=== PATIENT | male | born 1980 | race Caucasian/White ===

== ENCOUNTER 2020-05-04 11:02 | Outpatient (CLI) | payer OTHER, MEDICAID, SELFPAY ==
[2020-05-04 12:31] LABS: SARS-CoV-2 Ag Negative (Negative)
== END 2020-05-04 11:03 | disposition home or self-care (01) ==
PROVIDERS: PCP Family Medicine; Visit Provider Family Medicine
DX: Z20.828 Contact with and (suspected) exposure to other viral communicable diseases (principal)
CPT/HCPCS: 87426

== ENCOUNTER 2020-07-27 09:50 | Outpatient (CLI) | payer MEDICAID, SELFPAY ==
--- NOTE | ~2020-07-27 | XR_ITS ---
EXAMINATION: XR ribs LT 2V w CXR 2V, XR thoracic spine 3V DATE: 07/27/2020 10:31 INDICATION: Chest pain including sternal pain and deep left pectoral pain 2 months post lifting injur y. TECHNIQUE: 1. PA and lateral views of the chest and 3 views of the left ribs were obtained. 2. AP, lateral and lateral swimmer's views of the thoracic spine were obtained. COMPARISON: Chest radiograph dated 10/18/2014 FINDINGS: Chest and ribs: Linear bands of discoid atelectasis in the right lower lobe and at the lingula. No pulmonary edema, p leural effusion or pneumothorax. Cardiomediastinal silhouette is normal. No evident fracture of the r ibs or sternum. The retrosternal clear space and presternal soft tissues are unremarkable. Thoracic spine: 20 degree levoscoliosis measured between T2 and T6. Sagittal alignment is normal. Vertebral body heig hts are normal. Minimal disc height loss at a few levels in the lower thoracic spine. IMPRESSION: 1. No acute osseous abnormality in the thoracic spine, sternum or ribs. 2. 20 degree upper thoracic levoscoliosis with minimal spondylosis. 3. Discoid atelectasis in the right lower lobe and lingula. Reviewed, dictated and finalized at location A. [employer] IMPRESSION: 1. No acute osseous abnormality in the thoracic spine, sternum or ribs. 2. 20 degree upper thoracic levoscoliosis with minimal spondylosis. 3. Discoid atelectasis in the right lower lobe and lingula.
== END 2020-07-27 09:51 | disposition home or self-care (01) ==
LOC: CHSIMG 09:53
PROVIDERS: PCP Family Medicine; Visit Provider Family Medicine
DX: R07.89 Other chest pain (principal)
CPT/HCPCS: 71046; 71100; 72072

== ENCOUNTER 2020-08-06 08:58 | Outpatient (RCR) | payer OTHER, SELFPAY ==
--- NOTE | 2020-08-06 10:57 | PTOPEVAL ---
Thank you for referring Cj Acevedo to [facility].? The patient is scheduled to be seen for therapy? ____x/week for ___ weeks. Please review, sign, date and return this plan of care MANUEL. I agree with and certify that the following plan of care is medically necessary. Referring Physician Date Admitting Provider: Attending Provider: Adiel Alan MD Referring Provider: *PT Outpatient Evaluation Start: 08/06/20 08:59 Freq: Status: Active Protocol: Document 08/06/20 08:59 ACR (Rec: 08/06/20 10:16 ACR [id number]) Therapy Assessment Status Assessment Status Assessment Status Evaluation Evaluation Information Problem Diagnosis L rib pain Onset 06/20/20 Subjective Information Patient states he was working Query Text:As Reported By Patient/ where he was lift/pulling an Family object and felt a cramp in the rib area. The patient states that he is unable to lift objects in front of him or it will start cramping up and does not go away until he goes to sleep. The cramp can also start if he stand too long. Patient states the only relief for the pain is when he is laying down. Patient states the he has not been to work since the injury because there is a long of bending, twisting, lifting. Patient states he got an x-ray which the doctor told him it could be a cartilage thing. The pain is usually in the front rib cage area and is only tender when it is sore. 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
--- NOTE | 2020-09-03 16:19 | PCPTNOTE ---
Patient has participated in 4 visits from 08/06/20-08/16/20. He has been contacted to return to therapy to finish out POC, but has failed to contact back. Please refer to last daily note for discharge status. Freya Barone, PT, DPT
== END 2020-08-16 09:24 | disposition home or self-care (01) ==
LOC: CHSPT 08:58
PROVIDERS: PCP Family Medicine; Visit Provider Family Medicine
DX: R07.89 Other chest pain (principal)
CPT/HCPCS: 97014; 97110; 97140; 97162; G0283